=== PATIENT | female | born 1950 | race Caucasian/White ===

== ENCOUNTER 2017-06-17 15:04 | Outpatient (CLI) | payer MEDICARE ==
[2017-06-17 15:44] LABS: BASOPHILS # (AUTO) 0.1 10^3/uL (0.0-0.1); BASOPHILS % (AUTO) 0.7 %; EOSINOPHILS # (AUTO) 0.1 10^3/uL (0.0-0.7); EOSINOPHILS % (AUTO) 0.7 %; HCT - HEMATOCRIT 46.3 % (37.0-47.0); HGB - HEMOGLOBIN 15.5 g/dL (12.0-16.0); LYMPHOCYTES # (AUTO) 2.5 10^3/uL (1.5-3.5); MEAN CORPUSCULAR HEMOGLOBIN 32.6 pg (27.0-31.0); MEAN CORPUSCULAR HGB CONC 33.5 g/dL (32.0-36.0); MEAN CORPUSCULAR VOLUME 97.2 fL (81.0-99.0); MEAN PLATELET VOLUME 8.5 fL (7.9-10.8); MONOCYTES # (AUTO) 0.7 10^3/uL (0.0-1.0); MONOCYTES % (AUTO) 8.4 %; NEUTROPHILS # (AUTO) 5.3 10^3/uL (1.5-6.6); NEUTROPHILS % (AUTO) 61.2 %; RED BLOOD COUNT 4.76 10^6/uL (4.20-5.40); RED CELL DISTRIBUTION WIDTH 13.7 % (12.0-15.0); UNCORRECTED WHITE BLOOD COUNT 8.7 x10^3/uL; WHITE BLOOD COUNT 8.7 x10^3/uL (4.8-10.8)
[2017-06-17 16:07] LABS: ALBUMIN/GLOBULIN RATIO 1.3 (1.0-2.2); BILIRUBIN,TOTAL 0.5 mg/dL (0.2-1.0); CALCIUM 9.5 mg/dL (8.5-10.3); CREATININE 0.7 mg/dL (0.4-1.0); POTASSIUM 3.6 mmol/L (3.5-5.0); TOTAL PROTEIN 8.2 g/dL (6.7-8.2)
[2017-06-17 16:12] LABS: PT - PROTHROMBIN TIME 10.8 secs (9.9-12.6)
== END 2017-06-17 15:05 | disposition home or self-care (01) ==
LOC: LAB 15:04
PROVIDERS: ATTEND Surgery
DX: B19.20 Unspecified viral hepatitis C without hepatic coma (principal)
CPT/HCPCS: 36415; 80053; 85025; 85610

== ENCOUNTER 2017-06-19 12:49 | Outpatient (CLI) | payer MEDICARE ==
--- NOTE | 2017-06-19 16:20 | Ultrasound Report ---
EXAM: ABDOMEN ULTRASOUND LIMITED, RUQ EXAM DATE: 06/19/2017 01:20 PM. CLINICAL HISTORY: RUQ ABDOMINAL PAIN. COMPARISON: None. TECHNIQUE: Real-time scanning was performed with static images obtained. FINDINGS: Liver: Submitted images of liver demonstrate no focal lesions. Main portal vein flow: Hepatopetal. Gallbladder: No stones, wall thickening, or sonographic Gaffney's sign. Biliary System: CBD measures 6-8 mm. No evidence of intrahepatic bile duct dilatation. No choledochol ithiasis. Other: The visualized pancreas and right kidney are unremarkable. IMPRESSION: 1. The gallbladder demonstrates no stones or wall thickening. 2. There is borderline dilatation of the common bile duct. There is no evidence of intrahepatic bile duct dilatation. Submitted images demonstrate no choledocholithiasis. [facility] Referring Provider Line: [phone] SITE ID: [id number]
== END 2017-06-19 12:50 | disposition home or self-care (01) ==
LOC: DI 12:49
PROVIDERS: ATTEND Surgery
DX: R10.11 Right upper quadrant pain (principal)
CPT/HCPCS: 76705

== ENCOUNTER 2017-06-22 13:12 | Outpatient (CLI) | payer MEDICARE ==
[2017-06-22 18:05] LABS: ALBUMIN/GLOBULIN RATIO 1.3 (1.0-2.2); BILIRUBIN,TOTAL 0.6 mg/dL (0.2-1.0); CALCIUM 9.5 mg/dL (8.5-10.3); CREATININE 0.6 mg/dL (0.4-1.0); POTASSIUM 3.8 mmol/L (3.5-5.0); TOTAL PROTEIN 8.6 g/dL (6.7-8.2)
[2017-06-25 22:07] LABS: TEST RESULT REPORT
== END 2017-06-22 13:13 | disposition home or self-care (01) ==
LOC: LAB.F 13:12
PROVIDERS: ATTEND Physician Assistant Medical
DX: B19.20 Unspecified viral hepatitis C without hepatic coma (principal)
CPT/HCPCS: 36415; 80053; 81599; 87521; 87522

== ENCOUNTER 2017-11-19 11:12 | Outpatient (CLI) | payer MEDICARE | END 2017-11-19 11:13 | disposition critical access hospital (66) | LOC: EMS 11:12 | PROVIDERS: ATTEND Surgery | DX: S01.81XA Laceration without foreign body of other part of head, initial encounter (principal); R41.0 Disorientation, unspecified; W19.XXXA Unspecified fall, initial encounter; Y92.481 Parking lot as the place of occurrence of the external cause | CPT/HCPCS: A0425; A0429 ==

== ENCOUNTER 2017-11-19 12:05 | Emergency (ER) | payer MEDICARE ==
[2017-11-19] MEDS ORDERED: TETANUS/DIPHTHERIA/PERTUSSIS 0.5 ML SYRINGE IM ONE (12:13)
[2017-11-19] MEDS ORDERED: LIDOCAINE-EPINEPH-TETRACAINE 3 ML SYRINGE TOP STA (12:13)
[2017-11-19] MEDS ORDERED: BACITRACIN OINT TOP STA (12:16)
[2017-11-19] MEDS ORDERED: LIDOCAINE 2% 10 ML MDV SUBQ STA (12:28)
--- NOTE | 2017-11-19 12:31 | ED Physician Documentation ---
PD HPI Fall - Stated complaint Stated Complaint: FALL - Chief complaint Chief Complaint: Trauma Hd/Nk - History obtained from History obtained from: Patient, EMS - History of Present Illness Mechanism of injury: Tripped Fall distance: Standing position (in parking lot) Where injury occurred: Other (dentist) Injury(ies) location: Other (chin) Pain level max: 2 Pain level now: 1 Quality of pain: Pain, Aching, Dull Associated symptoms: No: LOC, AMS, Amnesia, Seizures, Ear drainage, Nasal drainage, Neck pain, Weakness, Paresthesias, Dyspnea, Nausea / vomiting, Hematemesis, Abdominal distension Symptoms improve with: Rest Worsens with: Movement, Palpation Contributing factors: No: Anticoagulated, Intoxicated - Additional information Additional information: Patient is a 66-year-old female who tripped and fell walking out of her dentist office today, causing lacerations to the chin and mouth. Attempted to control bleeding on scene with Steri-Strips and gauze, however she continued to bleed so was brought to the emergency department. No loss of consciousness. No vomiting. No neck or back pain. No headache. She also states she has had increasing confusion for the past year and does have a history of dementia. Review of Systems Ten Systems: 10 systems reviewed and negative Constitutional: denies: Fever, Chills Nose: denies: Rhinorrhea / runny nose, Congestion GI: denies: Nausea, Vomiting, Diarrhea Skin: denies: Rash Musculoskeletal: denies: Neck pain, Back pain Neurologic: reports: Confused. 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 HEENT: Tonsil/Adenoidectomy - Present Medications Home Medications: Ambulatory Orders Medication Instructions Recorded Confirmed Duloxetine HCl 60 mg PO BID 07/18/15 07/08/17 Oxycodone HCl 10 mg PO TID 07/18/15 07/08/17 Propranolol [Inderal] 80 mg PO DAILY 07/18/15 07/08/17 Trazodone HCl 50 mg PO DAILY 07/18/15 07/08/17 clonazePAM [KlonoPIN] 0.5 mg PO TID 07/18/15 07/08/17 predniSONE [Prednisone] 2 mg PO DAILY 07/18/15 07/08/17 Cyanocobalamin (Vitamin B-12) 100 mcg PO DAILY 07/07/17 07/08/17 [Vitamin B-12 (100mcg tab)] buPROPion HCl [Bupropion HCl] 75 mg PO BID 07/07/17 07/08/17 Etanercept [Enbrel] 25 mg SQ OAW 07/08/17 07/08/17 Cephalexin [Keflex] 500 mg PO Q6H #28 capsule 11/19/17 Chlorhexidine Gluconate [Peridex] 15 ml MM BID #1 mouthwash 11/19/17 - Allergies Allergies/Adverse Reactions: Allergies Allergy/AdvReac Type Severity Reaction Status Date / Time No Known Drug Allergies Allergy Verified 07/08/17 09:40 - Social History Does the pt smoke?: Yes Smoking Status: Current every day smoker Does the pt drink ETOH?: No Does the pt have substance abuse?: No - Immunizations Immunizations are current?: No Immunizations: TDAP >10years/unknown PD ED PE NORMAL - Vitals Vital signs reviewed: Yes - General General: Alert and oriented X 3 - HEENT HEENT: Atraumatic, PERRL, EOMI, Ears normal, Moist mucous membranes, Pharynx benign, Dentition benign, Other (2 small lacerations to be anterior aspect of the lower lip. Also has a larger laceration on the inner aspect of the lip. Does not appear to communicate.) - Neck Neck: Supple, no meningeal sign, No bony TTP - Cardiac Cardiac: RRR, Strong equal pulses - Respiratory Respiratory: No respiratory distress, Clear bilaterally - Abdomen Abdomen: Soft, Non tender, Non distended - Back Back: No spinal TTP - Derm Derm: Warm and dry - Extremities Extremities: No deformity, No tenderness to palpate, Normal ROM s pain, Other ( Old abrasions to the knuckles of the right hand, mild swelling and erythema) - Neuro Neuro: Alert and oriented X 3, screen printing paster 2-12 intact, No motor deficit, No sensory deficit, Normal speech - Psych Psych: Normal mood, Normal affect Results - Vitals Vitals: Vital Signs - 24 hr 11/19/17 11/19/17 12:07 13:46 Temperature 36.5 C 36.3 C L Heart Rate 70 57 L Respiratory 16 14 Rate Blood Pressure 154/82 H 139/100 H O2 Saturation 100 97 Oxygen O2 Source Room air - Labs Labs: Laboratory Tests 11/19/17 11/19/17 11/19/17 12:30 12:46 12:46 WBC 6.6 RBC 4.14 L Hgb 12.7 Hct 38.5 MCV 92.8 MCH 30.6 MCHC 32.9 RDW 13.2 Plt Count 278 MPV 7.9 Neut # 3.8 Lymph # 2.0 [place] # 0.6 Eos # 0.1 Baso # 0.0 Absolute Nucleated RBC 0.00 Nucleated RBC % 0.0 Sodium 133 L Potassium 3.9 Chloride 100 L Carbon Dioxide 24 Anion Gap 9.0 BUN 18 Creatinine 0.7 Estimated GFR (MDRD) 84 L Glucose 129 H Calcium 9.5 Total Bilirubin 0.6 AST 37 ALT 40 Alkaline Phosphatase 53 Total Protein 8.1 Albumin 4.3 Globulin 3.8 Albumin/Globulin Ratio 1.1 Lipase 15 L Urine Color YELLOW Urine Clarity CLEAR Urine pH 5.5 Ur Specific [place] 1.010 Urine Protein NEGATIVE Urine Glucose (UA) NEGATIVE Urine Ketones NEGATIVE Urine Occult Blood NEGATIVE Urine Nitrite NEGATIVE Urine Bilirubin NEGATIVE Urine Urobilinogen 0.2 (NORMAL) Ur Leukocyte Esterase NEGATIVE Ur Microscopic Review NOT INDICATED Urine Culture Comments NOT INDICATED Procedures - Laceration (location) lower lip Length in cm: 2 Wound type: Stellate, Irregular, Other (inner surface of lip) Neurovascular status: Sensory intact, Motor intact, Vascular intact Tendon involvement: Tendon intact Anesthesia: Lidocaine 2% Wound Preparation: Wound explored, To the base Deep layer closure: Vicryl, # sutures - enter number (2) Other: Patient tolerated well, No complications, Neurovascular intact, Tetanus booster given Complexity: Simple outer lip Length in cm: 2 Wound type: Linear, Into subcut fat, Clean Neurovascular status: Sensory intact, Motor intact, Vascular intact Anesthesia: LET Skin layer closure: Dermabond Other: Patient tolerated well, No complications, Neurovascular intact, Tetanus booster given Complexity: Simple PD MEDICAL DECISION MAKING - ED course Complexity details: reviewed results, re-evaluated patient, considered differential, d/w patient, d/w family ED course: Patient is a 66-year-old female who presents to the emergency department after a trip and fall today. Sustained a laceration to the outer chin, this was repaired with Dermabond. Tolerated well. Also has a significant laceration to the inner lip, this was repaired with Vicryl. We will also prescribe Peridex to help prevent infection. Also appears to have a slight cellulitis on an old injury on the right hand, this was cleansed and bandaged. Will place on Keflex for home for this. No acute laboratory abnormalities. No UTI. Will continue supportive care and follow-up with her doctor. No evidence of intracranial hemorrhage or skull fracture that required repair. No neck or back pain. Warnings of infection and instructions on wound care given at bedside. Also counseled on how to minimize scarring. Patient counseled regarding signs and symptoms for which I believe and urgent re-evaluation would be necessary. Patient with good understanding of and agreement to plan and is comfortable going home at this time This document was made in part using voice recognition software. While efforts are made to proofread this document, sound alike and grammatical errors may occur. Departure - Departure Disposition: 01 Home, Self Care Clinical Impression: Cellulitis Qualifiers: Site of cellulitis: extremity Site of cellulitis of extremity: upper extremity Laterality: right Qualified Code(s): L03.113 - Cellulitis of right upper limb Lip laceration Qualifiers: Encounter type: initial encounter Qualified Code(s): S01.511A - Laceration without foreign body of lip, initial encounter Condition: Good Instructions: ED Infec Skin Cellulitis Follow-Up: Rosemary Chakraborty PA-C [Primary Care Provider] - Within 3 Days (for recheck) Prescriptions: Cephalexin [Keflex] 500 mg PO Q6H #28 capsule Chlorhexidine Gluconate [Peridex] 15 ml MM BID #1 mouthwash Comments: The stitches should absorb on their own. Return if you worsen. Take all antibiotics until gone. Discharge Date/Time: 11/19/17 14:07
[2017-11-19 12:38] LABS: BILIRUBIN,URINE NEGATIVE (NEGATIVE); GLUCOSE, URINE (UA) NEGATIVE (NEGATIVE); KETONES,URINE (UA) NEGATIVE (NEGATIVE); LEUKOCYTE ESTERASE, URINE NEGATIVE (NEGATIVE); NITRITE,URINE NEGATIVE (NEGATIVE); OCCULT BLOOD,URINE NEGATIVE (NEGATIVE); PH,URINE 5.5 PH (5.0-7.5); PROTEIN,URINE NEGATIVE (NEGATIVE); UROBILINOGEN,URINE 0.2 (NORMAL) E.U./dL (NORMAL)
[2017-11-19 12:40] LABS: CLARITY,URINE CLEAR (CLEAR)
[2017-11-19 12:52] LABS: BASOPHILS % (AUTO) 0.7 %; EOSINOPHILS # (AUTO) 0.1 10^3/uL (0.0-0.7); EOSINOPHILS % (AUTO) 0.8 %; HGB - HEMOGLOBIN 12.7 g/dL (12.0-16.0); LYMPHOCYTES % (AUTO) 31.1 %; MEAN CORPUSCULAR HEMOGLOBIN 30.6 pg (27.0-31.0); MEAN CORPUSCULAR HGB CONC 32.9 g/dL (32.0-36.0); MEAN CORPUSCULAR VOLUME 92.8 fL (81.0-99.0); MEAN PLATELET VOLUME 7.9 fL (7.9-10.8); MONOCYTES # (AUTO) 0.6 10^3/uL (0.0-1.0); MONOCYTES % (AUTO) 8.8 %; NEUTROPHILS # (AUTO) 3.8 10^3/uL (1.5-6.6); NEUTROPHILS % (AUTO) 58.6 %; PLT - PLATELET COUNT 278 10^3/uL (130-450); RED BLOOD COUNT 4.14 10^6/uL (4.20-5.40); RED CELL DISTRIBUTION WIDTH 13.2 % (12.0-15.0); WHITE BLOOD COUNT 6.6 x10^3/uL (4.8-10.8)
[2017-11-19 13:13] LABS: ALBUMIN 4.3 g/dL (3.2-5.5); ALBUMIN/GLOBULIN RATIO 1.1 (1.0-2.2); BILIRUBIN,TOTAL 0.6 mg/dL (0.2-1.0); CALCIUM 9.5 mg/dL (8.5-10.3); CREATININE 0.7 mg/dL (0.4-1.0); TOTAL PROTEIN 8.1 g/dL (6.7-8.2)
[2017-11-19 13:47] VITALS: BP 139/100
== END 2017-11-19 14:07 | disposition home or self-care (01) ==
LOC: EDUNIT# → ED 12:05
DX: L03.113 Cellulitis of right upper limb (principal); S01.511A Laceration without foreign body of lip, initial encounter; W01.0XXA Fall on same level from slipping, tripping and stumbling without subsequent striking against object, initial encounter; Y92.531 Health care provider office as the place of occurrence of the external cause; Z23 Encounter for immunization; F03.90 Unspecified dementia, unspecified severity, without behavioral disturbance, psychotic disturbance, mood disturbance, and anxiety
CPT/HCPCS: 12013; 36415; 80053; 81003; 83690; 85025; 90471; 90715; 99283; 99284; A9270; 81001; 87086

== ENCOUNTER 2018-05-12 09:20 | Outpatient (CLI) | payer MEDICARE | END 2018-05-12 09:21 | disposition critical access hospital (66) | LOC: EMS 09:20 | PROVIDERS: ATTEND Surgery | DX: R46.89 Other symptoms and signs involving appearance and behavior (principal) | CPT/HCPCS: A0425; A0429 ==

== ENCOUNTER 2018-05-12 09:46 | Emergency (ER) | payer MEDICARE ==
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
[2018-05-12 11:25] LABS: BASOPHILS # (AUTO) 0.1 10^3/uL (0.0-0.1); BASOPHILS % (AUTO) 0.9 %; EOSINOPHILS % (AUTO) 0.2 %; LYMPHOCYTES # (AUTO) 1.4 10^3/uL (1.5-3.5); LYMPHOCYTES % (AUTO) 17.8 %; MEAN CORPUSCULAR HEMOGLOBIN 27.6 pg (27.0-31.0); MEAN CORPUSCULAR HGB CONC 32.5 g/dL (32.0-36.0); MEAN CORPUSCULAR VOLUME 84.8 fL (81.0-99.0); MONOCYTES # (AUTO) 0.6 10^3/uL (0.0-1.0); NEUTROPHILS % (AUTO) 74.1 %; PLT - PLATELET COUNT 313 10^3/uL (130-450); RED BLOOD COUNT 4.35 10^6/uL (4.20-5.40); RED CELL DISTRIBUTION WIDTH 14.8 % (12.0-15.0); WHITE BLOOD COUNT 8.1 x10^3/uL (4.8-10.8)
[2018-05-12 11:29] LABS: MUDS CUTOFF CONCENTRATIONS CUTOFF CONC BELOW:
[2018-05-12 11:33] LABS: BILIRUBIN,URINE NEGATIVE (NEGATIVE); GLUCOSE, URINE (UA) NEGATIVE (NEGATIVE); KETONES,URINE (UA) 15 mg/dL (NEGATIVE); LEUKOCYTE ESTERASE, URINE NEGATIVE (NEGATIVE); NITRITE,URINE NEGATIVE (NEGATIVE); OCCULT BLOOD,URINE NEGATIVE (NEGATIVE); PH,URINE 5.5 PH (5.0-7.5); PROTEIN,URINE NEGATIVE (NEGATIVE); UROBILINOGEN,URINE 0.2 (NORMAL) E.U./dL (NORMAL)
[2018-05-12 11:37] LABS: CLARITY,URINE CLEAR (CLEAR)
[2018-05-12 11:39] LABS: CALCIUM 8.8 mg/dL (8.5-10.3); CREATININE 0.5 mg/dL (0.4-1.0)
[2018-05-12 11:42] LABS: AMPHETAMINE SCREEN,URINE NEGATIVE (NEGATIVE); BENZODIAZEPINES SCREEN, URINE NEGATIVE (NEGATIVE); COCAINE SCREEN URINE NEGATIVE (NEGATIVE); METHADONE SCREEN, URINE NEGATIVE (NEGATIVE); METHAMPHETAMINES SCREEN, URINE NEGATIVE (NEGATIVE); OPIATE SCREEN, URINE NEGATIVE (NEGATIVE); OXYCODONE SCREEN, URINE POSITIVE (NEGATIVE); PROPOXYPHENE SCREEN, URINE NEGATIVE (NEGATIVE); TRICYCLIC ANTIDEPRESSANT,URINE NEGATIVE (NEGATIVE)
[2018-05-12 12:05] VITALS: BP 137/89
--- NOTE | 2018-05-12 12:35 | CT Report ---
Reason: lost in [place], possible HI, AMS, dementia Procedure Date: 05/12/2018 Accession Number: [id number] / [id number] Procedure: CT - Head W/O CPT Code: FULL RESULT: EXAM: CT HEAD EXAM DATE: 05/12/2018 12:02 PM. CLINICAL HISTORY: Transient alteration in awareness. COMPARISON: None. TECHNIQUE: Multiaxial CT images were obtained from the foramen magnum to the vertex. Reformats: Sagittal and coronal. IV contrast: None. In accordance with CT protocol optimization, one or more of the following dose reduction techniques were utilized for this exam: automated exposure control, adjustment of mA and/or KV based on patient size, or use of iterative reconstructive technique. FINDINGS: Parenchyma: No intraparenchymal hemorrhage. No evidence of mass, midline shift, or CT findings of acute infarction. Hill-white differentiation is distinct. Diffuse chronic microangiopathic white matter changes are evident. Extraaxial Spaces: Normal for age. No subdural or epidural collections identified. Ventricles: The ventricles and cortical sulci are enlarged, consistent with age-related tissue loss. Sinuses and orbits: Imaged paranasal sinuses, orbits, and mastoids show no significant abnormality. Bones: No evidence of fracture or calvarial defect. Other: None. IMPRESSION: Generalized age-related cortical atrophic changes without evidence of acute intracranial abnormality. [facility]
== END 2018-05-12 14:01 | disposition home or self-care (01) ==
LOC: EDUNIT# → EDBD → ED 09:46
DX: T69.9XXA Effect of reduced temperature, unspecified, initial encounter (principal); F03.90 Unspecified dementia, unspecified severity, without behavioral disturbance, psychotic disturbance, mood disturbance, and anxiety; F17.200 Nicotine dependence, unspecified, uncomplicated
CPT/HCPCS: 36415; 70450; 80048; 80306; 81001; 81003; 85025; 87086; 99281; 99285

== ENCOUNTER 2018-06-14 15:00 | Outpatient (CLI) | payer MEDICARE ==
--- NOTE | 2018-06-15 11:26 | MRI Report ---
Reason: PERISITENT ANKLE, MIDFOOT SWELLING Procedure Date: 06/14/2018 Accession Number: [id number] / [id number] Procedure: MRI - Foot LT W/O CPT Code: FULL RESULT: EXAM: LEFT MIDFOOT MRI WITHOUT CONTRAST EXAM DATE: 06/14/2018 03:25 PM. CLINICAL HISTORY: Persistent ankle, midfoot swelling. COMPARISON: None. TECHNIQUE: Multiplanar, multisequence T1-weighted and fluid-sensitive sequences of the midfoot without contrast. Other: None. FINDINGS: Bones: Fat saturation is suboptimal, and marrow edema in the distal metatarsals is difficult to exclude. Bony alignment appears satisfactory. There is a talar fracture which is better visualized on the accompanying ankle MRI. Articular Cartilage: The articular cartilage of the posterior subtalar joint is not clearly visualized. Ligaments: Midfoot ligaments appear unremarkable. Tendons: The flexor and extensor tendons appear unremarkable in the midfoot. Musculature: No edema or fatty atrophy. Other: Moderate sized ankle joint and subtalar joint effusion. The visualized portion of the tarsal tunnel is unremarkable. No intermetatarsal bursitis. The subcutaneous tissues are unremarkable. IMPRESSION: 1. Talar fracture which is better visualized on the accompanying ankle MRI. 2. Midfoot appears unremarkable. [facility]CUL[facility] SECTION
--- NOTE | 2018-06-15 11:45 | MRI Report ---
Reason: PERISITENT ANKLE, MIDFOOT SWELLING Procedure Date: 06/14/2018 Accession Number: [id number] / [id number] Procedure: MRI - Ankle LT W/O CPT Code: FULL RESULT: EXAM: LEFT ANKLE/HINDFOOT MRI WITHOUT CONTRAST EXAM DATE: 06/14/2018 04:02 PM. CLINICAL HISTORY: Ankle and mid foot swelling. COMPARISON: MRI foot. TECHNIQUE: Multiplanar, multisequence T1-weighted and fluid-sensitive sequences of the ankle/hindfoot without contrast. Other: None. FINDINGS: Bones: There is a fracture of the posterior process of the talus with intra-articular extension to involve the posterior subtalar articular surface. There is an accompanying subchondral component. There is severe marrow edema. There is mild edema of the adjacent calcaneum, which may represent a contusion. There is a high T2 signal focus in the distal fibular shaft which is nonspecific. There is no associated T1 signal change. Articular Cartilage: Unremarkable. Ligaments: The anterior and posterior tibiofibular, anterior and posterior talofibular, and calcaneofibular ligaments are intact. The deep and superficial deltoid and spring ligaments are intact. Anterior Tendons: The tibialis anterior, extensor hallucis longus, and extensor digitorum longus tendons are unremarkable. Medial Tendons: The tibialis posterior, flexor digitorum longus, and flexor hallucis longus tendons are unremarkable. Lateral Tendons: The peroneus brevis and longus are unremarkable. Achilles Tendon: The Achilles tendon is unremarkable. Musculature: No edema or fatty atrophy. Other: Moderate ankle and subtalar joint effusion. The contents of the sinus tarsi and tarsal tunnel are unremarkable. No plantar fasciitis. Mild subcutaneous edema. IMPRESSION: 1. Fracture of the posterior process of the talus with intraarticular extension at the posterior subtalar joint with extensive surrounding marrow edema. Mild edema of the adjacent calcaneum. 2. Ankle and subtalar joint effusions. 3. Ligaments and tendons appear intact. [facility] MUSCULOSKE[facility] SECTION
== END 2018-06-14 15:01 | disposition home or self-care (01) ==
LOC: DI 15:00
PROVIDERS: ATTEND Physician Assistant
DX: S92.132A Displaced fracture of posterior process of left talus, initial encounter for closed fracture (principal); M06.9 Rheumatoid arthritis, unspecified

== ENCOUNTER 2018-09-12 06:07 | Day surgery (SDC) | payer MEDICARE ==
[2018-09-12] MEDS ORDERED: LACTATED RINGERS 1,000 ML IV ONE (06:44)
[2018-09-12] MEDS ORDERED: LIDO GARGLE 30 ML BOTTLE ONE (07:15)
--- NOTE | 2018-09-12 07:30 | ANESTHESIA ---
Pre-Anesthesia VS, & Labs - Diagnosis barretts esophagus - Procedure egd Vital Signs: Temp Pulse Resp BP Pulse Ox 36.4 C L 74 18 129/81 H 98 09/12/18 06:44 09/12/18 06:44 09/12/18 06:44 09/12/18 06:44 09/12/18 06:44 Height 5 ft 9 in Weight (kg) 69.7 kg Body Mass Index 23.6 - NPO >8 hours - Is Patient ?: Not Applicable Home Medications and Allergies Home Medications: Ambulatory Orders Calcium Carbonate [Calcium] 600 mg PO DAILY 09/09/18 Cholecalciferol (Vitamin D3) [Vitamin D3] 1,000 unit PO DAILY 09/09/18 Omeprazole 40 mg PO DAILY 09/09/18 Vitamin B Complex 1 each PO DAILY 09/09/18 Duloxetine HCl 60 mg PO BID 07/18/15 Oxycodone HCl 10 mg PO TID 07/18/15 Propranolol [Inderal] 40 mg PO BID 07/18/15 Trazodone HCl 50 mg PO QPM 07/18/15 clonazePAM [KlonoPIN] 2.5 mg PO BID 07/18/15 predniSONE [Prednisone] 1 mg PO BID 07/18/15 buPROPion HCl [Bupropion HCl] 75 mg PO BID 07/07/17 Etanercept [Enbrel] 25 mg SQ ONCE 07/08/17 Calcium Carbonate [Calcium] 600 mg PO DAILY 09/09/18 Cholecalciferol (Vitamin D3) [Vitamin D3] 1,000 unit PO DAILY 09/09/18 Omeprazole 40 mg PO DAILY 09/09/18 Vitamin B Complex 1 each PO DAILY 09/09/18 Allergies/Adverse Reactions: Allergies Allergy/AdvReac Type Severity Reaction Status Date / Time No Known Drug Allergies Allergy Verified 05/12/18 10:00 Anes History & Medical History - Anesthetic History Anesthesia Complications: reports: No previous complications Family history of Anesthesia Complications: Denies Family history of Malignant Hyperthermia: Denies - Medical History Cardiovascular: reports: Hypertension Pulmonary: reports: Other Gastrointestinal: reports: GERD, Hepatitis Musculoskeletal: reports: Fibromyalgia, Rheumatoid arthritis, Other Skin: reports: Other Smoking Status: Current every day smoker - Surgical History General: Colonoscopy, EGD Eyes Ears Nose Throat (EENT): Tonsil/Adenoidectomy Gynecologic: Hysterectomy, Oophrectomy Exam General: Alert, Oriented x3, Cooperative, No acute distress Dental: Other (cap) Mouth Openin Fingerbreadth Mallampati classification: II Thyromental Distance: 4-6 cm Respiratory: Lungs clear, Normal breath sounds, No respiratory distress, No accessory muscle use Cardiovascular: Regular rate, Normal S1, Normal S2, No murmurs Cognitive Status: Within normal limits Plan Anesthesia Type: MAC Consent for Procedure(s) Verified and Reviewed: Yes ASA classification: 2-Mild systemic disease Is this case an emergency?: No
[2018-09-12] MEDS ORDERED: fentaNYL 100 MCG/2 ML VIAL IVP ONE (07:40)
[2018-09-12] MEDS ORDERED: MIDAZOLAM 2 MG/2 ML VIAL IVP ONE (07:40)
[2018-09-12] MEDS ORDERED: LIDO GARGLE 30 ML BOTTLE PO ONE (07:50)
[2018-09-12 08:22] VITALS: BP 101/58
== END 2018-09-12 06:08 | disposition home or self-care (01) ==
LOC: SDS 06:07
PROVIDERS: ATTEND Surgery
PROC: 0DB38ZX Excision of Lower Esophagus, Via Natural or Artificial Opening Endoscopic, Diagnostic (ICD-10-PCS; principal; 2018-09-12 07:30)
DX: K22.70 Barrett's esophagus without dysplasia (principal); G89.29 Other chronic pain; M06.9 Rheumatoid arthritis, unspecified; F41.9 Anxiety disorder, unspecified; F32.9 Major depressive disorder, single episode, unspecified; M26.609 Unspecified temporomandibular joint disorder, unspecified side; B18.2 Chronic viral hepatitis C; Z79.52 Long term (current) use of systemic steroids; Z79.891 Long term (current) use of opiate analgesic; Z86.11 Personal history of tuberculosis; Z87.891 Personal history of nicotine dependence
CPT/HCPCS: 43239; A9270; J7120

== ENCOUNTER 2019-01-30 14:04 | Outpatient (CLI) | payer MEDICARE ==
[2019-01-30 18:42] LABS: BASOPHILS % (AUTO) 0.8 %; EOSINOPHILS # (AUTO) 0.1 10^3/uL (0.0-0.7); HGB - HEMOGLOBIN 11.5 g/dL (12.0-16.0); LYMPHOCYTES # (AUTO) 2.9 10^3/uL (1.5-3.5); LYMPHOCYTES % (AUTO) 48.3 %; MEAN CORPUSCULAR HGB CONC 31.5 g/dL (32.0-36.0); MEAN CORPUSCULAR VOLUME 85.6 fL (81.0-99.0); MEAN PLATELET VOLUME 9.2 fL (7.9-10.8); MONOCYTES # (AUTO) 0.6 10^3/uL (0.0-1.0); MONOCYTES % (AUTO) 10.2 %; NEUTROPHILS # (AUTO) 2.3 10^3/uL (1.5-6.6); NEUTROPHILS % (AUTO) 38.7 %; PLT - PLATELET COUNT 337 10^3/uL (130-450); RED BLOOD COUNT 4.24 10^6/uL (4.20-5.40); RED CELL DISTRIBUTION WIDTH 14.9 % (12.0-15.0)
[2019-01-30 19:07] LABS: ALBUMIN 4.1 g/dL (3.2-5.5); ALBUMIN/GLOBULIN RATIO 1.1 (1.0-2.2); BILIRUBIN,TOTAL 0.4 mg/dL (0.2-1.0); CALCIUM 9.3 mg/dL (8.5-10.3); CREATININE 0.6 mg/dL (0.4-1.0); TOTAL PROTEIN 7.7 g/dL (6.7-8.2)
== END 2019-01-30 14:05 | disposition home or self-care (01) ==
LOC: LAB.F 14:04
PROVIDERS: ATTEND Physician Assistant Medical
DX: I10 Essential (primary) hypertension (principal); E03.9 Hypothyroidism, unspecified
CPT/HCPCS: 36415; 80053; 84443; 85025

== ENCOUNTER 2019-06-15 14:16 | Outpatient (CLI) | payer MEDICARE, OTHER ==
[2019-06-15 17:57] LABS: ALBUMIN 4.1 g/dL (3.2-5.5); ALKALINE PHOSPHATASE 55 IU/L (42-121); ALT ALANINE AMINOTRANSFERASE 24 IU/L (10-60); AST ASPARTATE AMINOTRANSFERASE 28 IU/L (10-42); BILIRUBIN,TOTAL 0.4 mg/dL (0.2-1.0); BUN - BLOOD UREA NITROGEN 8 mg/dL (6-20); CREATININE 0.6 mg/dL (0.4-1.0); GFR - MDRD 99 (>89); TOTAL PROTEIN 8.2 g/dL (6.7-8.2)
[2019-06-15 18:17] LABS: BILIRUBIN,DIRECT < 0.1 mg/dL (0.1-0.5)
== END 2019-06-15 14:17 | disposition home or self-care (01) ==
LOC: LAB.S 14:16
PROVIDERS: ATTEND Physician Assistant Medical
DX: Z79.899 Other long term (current) drug therapy (principal)
CPT/HCPCS: 36415; 80076; 82565; 84520

== ENCOUNTER 2019-08-04 08:00 | Outpatient (CLI) | payer MEDICARE, OTHER ==
[2019-08-04 18:42] LABS: BASOPHILS # (AUTO) 0.1 10^3/uL (0.0-0.1); BASOPHILS % (AUTO) 0.9 %; EOSINOPHILS % (AUTO) 0.3 %; LYMPHOCYTES # (AUTO) 1.6 10^3/uL (1.5-3.5); LYMPHOCYTES % (AUTO) 28.5 %; MEAN CORPUSCULAR HEMOGLOBIN 20.8 pg (27.0-31.0); MEAN CORPUSCULAR HGB CONC 28.3 g/dL (32.0-36.0); MEAN CORPUSCULAR VOLUME 73.4 fL (81.0-99.0); MEAN PLATELET VOLUME 10.2 fL (7.9-10.8); MONOCYTES # (AUTO) 0.8 10^3/uL (0.0-1.0); MONOCYTES % (AUTO) 13.5 %; NEUTROPHILS # (AUTO) 3.3 10^3/uL (1.5-6.6); NEUTROPHILS % (AUTO) 56.5 %; PLT - PLATELET COUNT 648 10^3/uL (130-450); RED CELL DISTRIBUTION WIDTH 16.9 % (12.0-15.0); WHITE BLOOD COUNT 5.8 x10^3/uL (4.8-10.8)
[2019-08-04 18:59] LABS: ALBUMIN 4.6 g/dL (3.2-5.5); ALBUMIN/GLOBULIN RATIO 1.1 (1.0-2.2); ALKALINE PHOSPHATASE 50 IU/L (42-121); ALT ALANINE AMINOTRANSFERASE 22 IU/L (10-60); AST ASPARTATE AMINOTRANSFERASE 32 IU/L (10-42); BILIRUBIN,TOTAL 0.6 mg/dL (0.2-1.0); BUN - BLOOD UREA NITROGEN 14 mg/dL (6-20); CARBON DIOXIDE - CO2 26 mmol/L (21-32); CHLORIDE 91 mmol/L (101-111); CREATININE 0.9 mg/dL (0.4-1.0); GFR - MDRD 62 (>89); GLUCOSE 131 mg/dL (70-100); SODIUM 128 mmol/L (135-145); TOTAL PROTEIN 8.7 g/dL (6.7-8.2)
[2019-08-04 19:08] LABS: CRP - C-REACTIVE PROTEIN < 1.0 mg/dL (0-1.0)
[2019-08-04 19:59] LABS: PLATELET ESTIMATE, MANUAL INCREASED (>450,000) (NORMAL); PLATELET MORPHOLOGY NORMAL APPEARANCE (NORMAL)
== END 2019-08-04 23:59 | disposition home or self-care (01) ==
LOC: LAB.S 08:00
PROVIDERS: ATTEND Physician Assistant
DX: Z79.899 Other long term (current) drug therapy (principal); M05.79 Rheumatoid arthritis with rheumatoid factor of multiple sites without organ or systems involvement; R11.0 Nausea
CPT/HCPCS: 36415; 80053; 81001; 81599; 85025; 86140; 86480; 87086

== ENCOUNTER 2019-08-07 12:31 | Outpatient (CLI) | payer MEDICARE ==
[2019-08-07 17:42] LABS: BILIRUBIN,URINE NEGATIVE (NEGATIVE); GLUCOSE, URINE (UA) NEGATIVE (NEGATIVE); KETONES,URINE (UA) NEGATIVE (NEGATIVE); LEUKOCYTE ESTERASE, URINE NEGATIVE (NEGATIVE); NITRITE,URINE NEGATIVE (NEGATIVE); OCCULT BLOOD,URINE NEGATIVE (NEGATIVE); PH,URINE 6.5 PH (5.0-7.5); PROTEIN,URINE NEGATIVE (NEGATIVE); UROBILINOGEN,URINE 1 (NORMAL) E.U./dL (NORMAL)
[2019-08-07 17:46] LABS: CLARITY,URINE CLEAR (CLEAR)
== END 2019-08-07 23:59 | disposition home or self-care (01) ==
LOC: LAB.R 12:31
PROVIDERS: ATTEND Physician Assistant
DX: M05.79 Rheumatoid arthritis with rheumatoid factor of multiple sites without organ or systems involvement (principal); Z79.899 Other long term (current) drug therapy; R11.0 Nausea
CPT/HCPCS: 81001; 81003; 87086

== ENCOUNTER 2019-11-22 07:27 | Day surgery (SDC) | payer MEDICARE ==
[2019-11-22] MEDS ORDERED: PROPOFOL 200 MG/20 ML VIAL IVP ONE (07:28)
[2019-11-22] MEDS ORDERED: LIDOCAINE-MPF 2% 5 ML VIAL IM ONE (07:28)
[2019-11-22] MEDS ORDERED: MIDAZOLAM 2 MG/2 ML VIAL IVP ONE (07:28)
--- NOTE | 2019-11-22 08:00 | ANESTHESIA ---
Pre-Anesthesia VS, & Labs - Diagnosis tristian's esophagus - Procedure EGD Vital Signs: Temp Pulse Resp BP Pulse Ox 36.6 C 62 18 148/112 H 100 11/22/19 07:44 11/22/19 07:44 11/22/19 07:44 11/22/19 07:44 11/22/19 07:44 Height 5 ft 9 in Weight (kg) 67 kg Body Mass Index 23.6 - NPO >8 hours - Is Patient ?: No Home Medications and Allergies Home Medications: Ambulatory Orders Amlodipine Besylate 5 mg PO QPM 11/20/19 diazePAM [Diazepam] 5 mg PO DAILY 11/20/19 terbinafine HCL [Terbinafine HCl] 250 mg PO DAILY 11/20/19 Oxycodone HCl 5 mg PO QID 07/18/15 Propranolol [Inderal] 40 mg PO BID 07/18/15 Trazodone HCl 50 mg PO BID 07/18/15 predniSONE [Prednisone] 1 mg PO BID 07/18/15 Etanercept [Enbrel] 25 mg SQ ONCE 07/08/17 Calcium Carbonate [Calcium] 600 mg PO DAILY 09/09/18 Cholecalciferol (Vitamin D3) [Vitamin D3] 1,000 unit PO DAILY 09/09/18 Omeprazole 20 mg PO DAILY 09/09/18 Amlodipine Besylate 5 mg PO QPM 11/20/19 diazePAM [Diazepam] 5 mg PO DAILY 11/20/19 terbinafine HCL [Terbinafine HCl] 250 mg PO DAILY 11/20/19 Allergies/Adverse Reactions: Allergies Allergy/AdvReac Type Severity Reaction Status Date / Time codeine AdvReac Unknown Verified 11/22/19 07:50 Anes History & Medical History - Anesthetic History Anesthesia Complications: reports: No previous complications Family history of Anesthesia Complications: Denies Family history of Malignant Hyperthermia: Denies - Medical History Cardiovascular: reports: Hypertension Pulmonary: reports: None, Other Gastrointestinal: reports: GERD, Colon polyps, Hepatitis, Other Urinary: reports: Incontinence Neuro: reports: None, Other (reports "balance problems") Musculoskeletal: reports: Fibromyalgia, Rheumatoid arthritis, Other Endocrine/Autoimmune: reports: None Blood Disorders: reports: None Skin: reports: Other Smoking Status: Former smoker (quit in 2018) Psychosocial: reports: No issues indicated - Surgical History General: Colonoscopy, EGD Eyes Ears Nose Throat (EENT): Cataracts, Tonsil/Adenoidectomy Gynecologic: Hysterectomy, Oophrectomy Exam General: Alert, Oriented x3, Cooperative, No acute distress Dental: WNL Mouth Openin Fingerbreadth Neck Mobility: Normal Mallampati classification: II Thyromental Distance: 4-6 cm Respiratory: Lungs clear, Normal breath sounds, No respiratory distress, No accessory muscle use Cardiovascular: Regular rate, Normal S1, Normal S2, No murmurs Abdomen: Normal bowel sounds, Soft, No tenderness, No hepatospenomegaly, No masses Extremities: No clubbing, No cyanosis, No edema, Normal pulses, No te nderness/swelling Neurological: Normal gait, Normal speech, Strength at 5/5 X4 ext, Normal tone, Sensation intact, Cranial nerves 3-12 NL, Reflexes 2+ Mental/Cognitive Status: Alert/Oriented X3, Normal for patient Cognitive Status: Within normal limits Plan Anesthesia Type: MAC Consent for Procedure(s) Verified and Reviewed: Yes Code Status: Attempt Resuscitation ASA classification: 2-Mild systemic disease Is this case an emergency?: No
[2019-11-22] MEDS ORDERED: LACTATED RINGERS 1,000 ML IV ONE (08:07)
[2019-11-22] MEDS ORDERED: LIDO GARGLE 30 ML BOTTLE PO ONE ×2 (09:02→09:23)
[2019-11-22] MEDS ORDERED: LIDO GARGLE 30 ML BOTTLE ONE (09:03)
[2019-11-22 10:04] VITALS: BP 151/75
== END 2019-11-22 07:28 | disposition home or self-care (01) ==
LOC: SDS 07:27
PROVIDERS: ATTEND Surgery
PROC: 0DB68ZX Excision of Stomach, Via Natural or Artificial Opening Endoscopic, Diagnostic (ICD-10-PCS; principal; 2019-11-22 08:45)
DX: K22.70 Barrett's esophagus without dysplasia (principal); K29.50 Unspecified chronic gastritis without bleeding; K21.9 Gastro-esophageal reflux disease without esophagitis; F03.90 Unspecified dementia, unspecified severity, without behavioral disturbance, psychotic disturbance, mood disturbance, and anxiety; F41.9 Anxiety disorder, unspecified; F32.9 Major depressive disorder, single episode, unspecified; M06.9 Rheumatoid arthritis, unspecified; M54.9 Dorsalgia, unspecified; I10 Essential (primary) hypertension; G89.29 Other chronic pain; Z79.52 Long term (current) use of systemic steroids; Z79.899 Other long term (current) drug therapy; Z80.0 Family history of malignant neoplasm of digestive organs; Z81.1 Family history of alcohol abuse and dependence; Z81.8 Family history of other mental and behavioral disorders; Z86.11 Personal history of tuberculosis; Z87.891 Personal history of nicotine dependence
CPT/HCPCS: 43239; A9270; J7120

== ENCOUNTER 2019-11-24 13:45 | Outpatient (CLI) | payer MEDICARE ==
[2019-11-24 17:29] LABS: ALBUMIN 4.3 g/dL (3.2-5.5); BILIRUBIN,DIRECT 0.1 mg/dL (0.1-0.5); BILIRUBIN,TOTAL 0.5 mg/dL (0.2-1.0)
== END 2019-11-24 13:46 | disposition home or self-care (01) ==
LOC: LAB.S 13:45
PROVIDERS: ATTEND Physician Assistant Medical
DX: B35.1 Tinea unguium (principal); Z79.899 Other long term (current) drug therapy
CPT/HCPCS: 36415; 80076

== ENCOUNTER 2020-08-12 14:03 | Outpatient (CLI) | payer MEDICARE ==
[2020-08-12 20:01] LABS: BASOPHILS # (AUTO) 0.1 10^3/uL (0.0-0.1); BASOPHILS % (AUTO) 1.1 %; EOSINOPHILS # (AUTO) 0.1 10^3/uL (0.0-0.7); EOSINOPHILS % (AUTO) 1.6 %; HGB - HEMOGLOBIN 12.8 g/dL (12.0-16.0); LYMPHOCYTES # (AUTO) 2.1 10^3/uL (1.5-3.5); LYMPHOCYTES % (AUTO) 33.9 %; MEAN CORPUSCULAR HEMOGLOBIN 26.6 pg (27.0-31.0); MEAN CORPUSCULAR HGB CONC 30.6 g/dL (32.0-36.0); MEAN CORPUSCULAR VOLUME 86.7 fL (81.0-99.0); MEAN PLATELET VOLUME 10.8 fL (7.9-10.8); MONOCYTES # (AUTO) 0.6 10^3/uL (0.0-1.0); NEUTROPHILS # (AUTO) 3.3 10^3/uL (1.5-6.6); NEUTROPHILS % (AUTO) 54.2 %; PLT - PLATELET COUNT 389 10^3/uL (130-450); RED BLOOD COUNT 4.82 10^6/uL (4.20-5.40); RED CELL DISTRIBUTION WIDTH 17.3 % (12.0-15.0); WHITE BLOOD COUNT 6.1 x10^3/uL (4.8-10.8)
[2020-08-12 20:27] LABS: ALBUMIN 4.1 g/dL (3.2-5.5); ALKALINE PHOSPHATASE 58 IU/L (42-121); ALT ALANINE AMINOTRANSFERASE 43 IU/L (10-60); AST ASPARTATE AMINOTRANSFERASE 41 IU/L (10-42); BILIRUBIN,TOTAL 0.5 mg/dL (0.2-1.0); BUN - BLOOD UREA NITROGEN 8 mg/dL (6-20); CALCIUM 9.5 mg/dL (8.5-10.3); CARBON DIOXIDE - CO2 26 mmol/L (21-32); CHLORIDE 102 mmol/L (101-111); CHOL/HDL RATIO 3.6 (<4.4); CHOLESTEROL 144 mg/dL; CREATININE 0.7 mg/dL (0.4-1.0); GLUCOSE 92 mg/dL (70-100); HDL CHOLESTEROL 40 mg/dL; LDL CHOLESTEROL,CALCULATED 81 mg/dL; SODIUM 140 mmol/L (135-145); TOTAL PROTEIN 8.3 g/dL (6.7-8.2); VLDL CHOLESTEROL 23 mg/dL
== END 2020-08-12 14:04 | disposition home or self-care (01) ==
LOC: LAB.S 14:03
PROVIDERS: ATTEND Physician Assistant
DX: I10 Essential (primary) hypertension (principal); E03.9 Hypothyroidism, unspecified; L85.3 Xerosis cutis; B19.20 Unspecified viral hepatitis C without hepatic coma; F41.8 Other specified anxiety disorders
CPT/HCPCS: 80053; 80061; 83721; 84443; 85025

== ENCOUNTER 2021-10-29 12:29 | Outpatient (CLI) | payer MEDICARE ==
[2021-10-29 19:53] LABS: BASOPHILS # (AUTO) 0.1 10^3/uL (0.0-0.1); BASOPHILS % (AUTO) 0.8 %; EOSINOPHILS # (AUTO) 0.6 10^3/uL (0.0-0.7); EOSINOPHILS % (AUTO) 8.4 %; HCT - HEMATOCRIT 43.7 % (37.0-47.0); HGB - HEMOGLOBIN 13.6 g/dL (12.0-16.0); LYMPHOCYTES # (AUTO) 1.3 10^3/uL (1.5-3.5); LYMPHOCYTES % (AUTO) 17.8 %; MEAN CORPUSCULAR HEMOGLOBIN 28.2 pg (27.0-31.0); MEAN CORPUSCULAR HGB CONC 31.1 g/dL (32.0-36.0); MEAN CORPUSCULAR VOLUME 90.5 fL (81.0-99.0); MEAN PLATELET VOLUME 10.8 fL (7.9-10.8); MONOCYTES # (AUTO) 0.6 10^3/uL (0.0-1.0); MONOCYTES % (AUTO) 7.6 %; NEUTROPHILS # (AUTO) 4.8 10^3/uL (1.5-6.6); NEUTROPHILS % (AUTO) 65.1 %; PLT - PLATELET COUNT 420 10^3/uL (130-450); RED BLOOD COUNT 4.83 10^6/uL (4.20-5.40); RED CELL DISTRIBUTION WIDTH 14.2 % (12.0-15.0); WHITE BLOOD COUNT 7.4 x10^3/uL (4.8-10.8)
[2021-10-29 20:16] LABS: ALBUMIN 3.9 g/dL (3.2-5.5); BILIRUBIN,TOTAL 0.5 mg/dL (0.2-1.0); CALCIUM 9.5 mg/dL (8.5-10.3); CREATININE 0.6 mg/dL (0.4-1.0); TOTAL PROTEIN 7.7 g/dL (6.7-8.2)
[2021-10-29 20:34] LABS: THYROID STIMULATING HORMONE 3.17 uIU/mL (0.34-5.60)
== END 2021-10-29 12:30 | disposition home or self-care (01) ==
LOC: LAB.S 12:29
PROVIDERS: ATTEND Internal Medicine
DX: Z79.899 Other long term (current) drug therapy (principal); E55.9 Vitamin D deficiency, unspecified; E03.9 Hypothyroidism, unspecified
CPT/HCPCS: 36415; 80053; 82306; 84443; 85025

== ENCOUNTER 2022-05-16 08:50 | Outpatient (CLI) | payer MEDICARE | END 2022-05-16 08:51 | disposition short-term general hospital (02) | LOC: EMS 08:50 | DX: R29.898 Other symptoms and signs involving the musculoskeletal system (principal); R29.810 Facial weakness; R47.02 Dysphasia | CPT/HCPCS: A0425; A0429 ==